=== PATIENT | male | born 1940 | race Caucasian/White ===

== ENCOUNTER 2018-11-08 07:00 | Observation (INO) | payer OTHER ==
[~2018-11-08] VITALS: Ht 172.7 cm; Wt 104.3 kg
[~2018-11-08 07:00] MED LIST: ASPIRIN325 MG PO; ATENOLOL25 MG PO; CO Q-10100 MG PO; GARLIC100 MG PO; LEVOTHYROXINE75 MCG PO; NIACIN500 M1 PO; SILDENAFIL20 MG PO; TAMSULOSIN HCL0.4 MG PO; VITAMIN C500 M2 PO; VITAMIN D31000 UNI1 PO
--- NOTE | 2018-11-08 12:58 | NUR ---
11/08/18 1258 Eliz Correia 1244 PT ARRIVED IN PACU WITH ORAL AIRWAY. NON-RESPONSIVE TO VERBAL/TACTILE STIMULI.
--- NOTE | 2018-11-08 14:53 | NUR ---
TITRATING CBI DOWN URINE IN CLEAR STRAW COLOR. 500 IRRIGATION IN 850 URINE OUT EQUALS 350ML URINE OUT.
[2018-11-08] MEDS ORDERED: SIMVASTATIN20 MG PO (15:35)
--- NOTE | 2018-11-08 16:03 | NUR ---
Medications reconciled with patient's medication bottles and patient interview
--- NOTE | 2018-11-08 16:34 | NUR ---
PT URINE IN TUBE IS LIGHT CRANBERRY AT THIS TIME. WILL CONTINUE WITH CBI. PT REPORTS PAIN IS WELL MANAGED AT THIS TIME.
--- NOTE | 2018-11-08 16:34 | NUR ---
PT RESTING QUIETLY IN BED REPORTS PAIN IS WELL CONTROLLED DENIES NEED FOR MORE PAIN MEDICATIONS AT THIS TIME. URINE IS LIGHT PINK NEARLY CLEAR AT THIS TIME IN THE TUBE OF SIMEON.
--- NOTE | 2018-11-08 17:35 | NUR ---
PT TO THE UNIT POST OP TURP/CBI, PT TOLERATING REGULAR DIET, NO NAUSEA, PERCOCET GIVEN ONCE FOR PAIN 01/17. SECURMENT DEVICE FOR SIMEON PLACED ON ARRIVAL. NO BLOOD NOTED AT MEATUS. TITRATING CBI TO MAINTAIN LIGHT PINK URINE IN SIMEON TUBE.
--- NOTE | 2018-11-08 18:11 | NUR ---
PATIENT SITTING UP IN BED, BEDSIDE. CALL LIGHT IN REACH. NO FURTHER NEEDS AT THIS TIME.
--- NOTE | 2018-11-08 19:27 | NUR ---
SHIFT REPORT RECEIVED FROM DEREK MORRIS AT BEDSIDE. PT AWAKE AND IN BED, IN ROOM. PT VERBALIZED CURIOSITY REGARDING PRN STOOL SOFTNER FOR BOWEL EASE. PT DENIES FURTHER NEEDS, CALL LIGHT IN REACH. CBI INFUSING, LIGHT PINK NOTED IN CATHETER TUBING, WILL MONITOR. PT DENIES PAIN.
--- NOTE | 2018-11-08 21:00 | NUR ---
ASSESSMENT COMPLETE. IV FLUIDS INFUSING PER MD ORDERS, IV SITE WNL, BLOOD RETURN NOTED. CBI INFUSING, LIGHT TO MEDIUM PINK TINGED URINE NOTED IN CATHETER TUBING. PT DENIES PAIN OR BLADDER SPASMS. PRN CONSTIPATION MEDICATION GIVEN PER PT REQUEST. NO ADDITIONAL NEEDS, CALL LIGHT IN REACH.
--- NOTE | 2018-11-08 21:00 | NUR ---
CBI INFUSING, 1000 MLS LIGHT TO MEDIUM PINK URINE NOTED FOR OUTPUT. PT DENIES PAIN AND OTHER NEEDS, CALL LIGHT IN REACH.
--- NOTE | 2018-11-08 22:01 | NUR ---
V/S DONE AND CHARTED. ICE WATER REFILLED.
--- NOTE | 2018-11-08 22:30 | NUR ---
CBI INFUSING, 775 LIGHT TO MEDIUM PINK URINE NOTED AND EMPTIED FROM CATHETER. PT DENIES BLADDER SPASMS AND PAIN. NO NEEDS, PT IN GOOD SPIRITS. CALL LIGHT IN REACH.
--- NOTE | 2018-11-08 23:30 | NUR ---
CBI INFUSING, PT DENIES BLADDER SPASMS OR PAIN. 325 MLS OF LIGHT TO MEDIUM PINK TINGED URINE NOTED. NO CLOTS. PT DENIES NEEDS, CALL LIGHT IN REACH.
--- NOTE | 2018-11-09 00:17 | NUR ---
new bag of iv fluids infusing per md orders, site wnl. no further needs, call light in reach.
--- NOTE | 2018-11-09 02:30 | NUR ---
ASSESSMENT COMPLETE. VSS. PT DENIES PAIN AND BLADDER SPASMS AT THIS TIME. CBI INFUSING, RATE OF CBI INFUSION DECREASED CATHETER TUBING IS CLEAR TO LINK PINK IN COLOR. NO FURTHER NEEDS, [facility] TECHNICAL ARCHITECT SINTA IN ROOM TO EMPTY SIMEON BAG. CALL LIGHT IN REACH.
--- NOTE | 2018-11-09 03:00 | NUR ---
CBI CLAMPED AT THIS TIME. CATHETER OUTPUT IS CLEAR WITH HUES OF LIGHT PINK. RECENT 725 MLS OUTPUT. PT DENIES FURTHER NEEDS, CALL LIGHT IN REACH.
--- NOTE | 2018-11-09 03:57 | NUR ---
CBI UNCLAMPED AND IS INFUSING. CATHTER OUTPUT IS CRANBERRY IN COLOR, NO CLOTS NOTED. PT DENIES PAIN. NO FURTHER NEEDS, CALL LIGHT IN REACH.
--- NOTE | 2018-11-09 06:21 | NUR ---
500 MLS LIGHT TO MEDIUM PINK UO COLLECTED. CBI REMAINS IN PLACE. IV FLUIDS ALSO INFUSING PER MD ORDERS, SITE WNL. PT DENIES PAIN, CALL LIGHT IN REACH. I&O'S AND VS COLLECTED.
--- NOTE | 2018-11-09 07:58 | NUR ---
CATHETER TUBING IS CLEAR, CBI CLAMPED. DAYSHIFT RN AWARE. 352 OUTPUT RECORDED. PT DENIES NEEDS, CALL LIGHT IN REACH. PT DENIES FURTHER NEEDS.
--- NOTE | 2018-11-09 08:58 | NUR ---
PT COMPLAING OF CHEST PAIN AT THIS TIME. DR. RUSSO NOTIFIED REGARDING EVENT. NEW ORDERS OBTAINED VIA TORB FOR STAT EKG, LABS FOR TROPONIN, CALCIUM, MAG, PHOS. VS AT THIS TIME ARE BP 179/77, P103, MEAN PRESSURE 102. PT REQUESTING EKG. PT JUST ATE A LARGE MEAL, SITTING IN BED AT THIS TIME. TURP IS UNCLAMPED AT THIS TIME, TUBING COLOR IS CLEAR AT THIS TIME.
--- NOTE | 2018-11-09 09:00 | NUR ---
DR. RUSSO IN TO CONSULT WITH PT. NEW ORDER RECEIVED FOR PEPCID 1MG IVP. PT REPORTS CHEST PAIN WENT AWAY. BP 156/66, P98, MEAN 86. SAT LEVEL 97%. PT DENIES SOB. CONT IRRIGATION RUNNING, CLEAR COLORED OUTPUT NOTED IN TUBING, TITRATED DOWN BY DR. RUSSO AT THIS TIME. PT STATES HE FEELS BETTER AT THIS TIME. REMAINS AT BEDSIDE. CALL LIGHT WTIHIN REACH. PT REPORTS HE FEELS "ANXIOUS TO GO HOME".
--- NOTE | 2018-11-09 09:31 | NUR ---
PROVIDER AWARE OF CHEST PAIN REPORT FROM THIS AM. RESOLVED.
--- NOTE | 2018-11-09 09:38 | NUR ---
PATIENT IN BED WATCHING TV, IN ROOM. CALL LIGHT IN REACH. NO FURTHER NEEDS AT THIS TIME.
[2018-11-09] MEDS ORDERED: PERCOCET 5-3251 EACH PO (11:04)
[2018-11-09] MEDS ORDERED: LEVAQUIN500 MG PO (11:07)
--- NOTE | 2018-11-09 15:31 | EKG ---
[facility] [address] [facility] [place] [address] Signed Normal sinus rhythm Left axis deviation Possible Inferior infarct , age undetermined Abnormal ECG When compared with ECG of 28-OCT-2018 08:53, Borderline criteria for Inferior infarct are now present T wave inversion now evident in Inferior leads Confirmed by NOAH FRIAS DO ([id number]) on 11/09/2018 3:31:11 PM Electronically Signed By: NOAH FRIAS DO 11/09/18 1531 PATIENT NAME: CHERELLE WADSWORTH Electrocardiogram DATE OF : 40 PHYSICIAN: NOAH FRIAS DO REPORT #: [id number] REPORT IS CONFIDENTIAL AND NOT TO BE RELEASED WITHOUT AUTHORIZATION
--- NOTE | 2018-11-12 12:35 | OR ---
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 PROCEDURES PERFORMED: 1. Urethral dilation using [place] sounds, 14-Kenyan to 28-Kenyan. 2. Transurethral resection of the prostate. ANESTHESIA: General. ESTIMATED BLOOD LOSS: 30 mL. COMPLICATIONS: None. SPECIMENS: Prostate chips sent to pathology for evaluation. DRAINS: A 22-Kenyan 3-way Renteria catheter, connected to continuous bladder irrigation. INDICATIONS FOR PROCEDURE: Mr. Thomas is a very pleasant 78-year-old gentleman who recently presented to me with complaints of progressively worsening weakening in his force of stream along with nocturia and mild urgency symptoms. He underwent diagnostic cystoscopy, which revealed severe trilobar BPH with a very prominent median lobe. It was approximately 3 cm from verumontanum to bladder neck. After a long discussion of the risks and benefits of the procedure, the patient elected to undergo transurethral resection of the prostate for definitive management of his BPH symptoms. OPERATIVE FINDINGS: 1. The patient's urethra was dilated from 14-Kenyan to 28-Kenyan using Brownton sounds Electronically Signed By: ALYSSA RUSSO MD 11/12/18 1235 PATIENT NAME: CHERELLE THOMAS OPERATIVE REPORT DATE OF : 40 REPORT #: [id number] PHYSICIAN: ALYSSA RUSSO MD PCP: NO PRIMARY CARE PHYSICIAN REPORT IS CONFIDENTIAL AND NOT TO BE RELEASED WITHOUT AUTHORIZATION [facility] [address] [place], [place] [address] Signed without difficulty. 2. Cystoscopy revealed no evidence of any suspicious masses, lesions, or stones. Bilateral ureteral orifices were not in the vicinity of the bladder neck or of the median lobe. Therefore, the median lobe was easily resected using the bipolar loop without damage to the bilateral ureteral orifices. 3. The patient's prostate was resected using a 24-Kenyan bipolar loop in a stepwise fashion, beginning at the median lobe and then the left lateral lobe followed by the right lateral lobe of the prostate. The prostate was dissected down to the level of the verumontanum. Overall, the resection was performed without any complication. 4. A 22-Kenyan three way Renteria catheter was inserted into the patient's bladder and connected to continuous bladder irrigation at the end of procedure. 5. Digital rectal examination was performed today, which revealed a 55 g prostate with hypertrophy noted in both lobes with a deep medial median furrow. The gland is mostly soft and smooth with no evidence of focal nodularity. DESCRIPTION OF PROCEDURE: After informed consent was obtained, the patient was taken back to the operating room. He was transferred from the [facility] to the operating room table, where general anesthesia was induced. He was placed in dorsal lithotomy position and his genitalia were prepped and draped in a standard sterile fashion. Using a 30-degree lens on a 26-Kenyan introducer, the sheath was inserted into the patient's bladder with the help of the visual obturator. Prior to this, the patient's urethra was dilated using Snow sounds from 14-Kenyan to 28-Kenyan without difficulty. Once inside the bladder, I removed the visual obturator and inserted the resectoscope and performed a thorough inspection of the patient's bladder and bilateral ureteral orifices. I then inspected the prostatic urethra. I then began my resection of the median lobe of the prostate, which was not in the vicinity of the bilateral ureteral orifices. Once this lobe was resected, I then resected the left lateral lobe followed by the right lateral lobe of the prostate. Once the majority of the adenoma was successfully removed, I switched over to the bipolar button where I then was able to achieve adequate hemostasis via cauterization of the resection bed. The entire prostatic urethra was then cauterized after resection of the adenoma, in particular the anterior wall of the urethra as well as the junction between the lateral lobes and the area of the verumontanum. Once I was satisfied that hemostasis had been achieved, I removed the resectoscope and placed a Ana María onto the sheath and irrigated all the prostate chips out of the patient's bladder and placed them in a specimen cup to be sent to pathology for evaluation. Once all the prostate chips were successfully evacuated, a Sensor wire was inserted through the 26-Kenyan sheath and into the patient's bladder. The sheath was then removed leaving the wire behind. Over the wire, I passed a 22-Kenyan 3-way Renteria catheter into the patient's bladder. The Sensor wire was then removed. The catheter balloon was filled with 30 mL of sterile water. The catheter was then irrigated manually, which produced clear pink irrigation fluid. The catheter was then connected to the continuous bladder Electronically Signed By: ALYSSA RUSSO MD 11/12/18 1235 PATIENT NAME: CHERELLE THOMAS OPERATIVE REPORT DATE OF : 40 REPORT #: [id number] PHYSICIAN: ALYSSA RUSSO MD PCP: NO PRIMARY CARE PHYSICIAN REPORT IS CONFIDENTIAL AND NOT TO BE RELEASED WITHOUT AUTHORIZATION [address] [place] [address] Signed irrigation and the procedure was terminated. The patient tolerated the procedure well without any complication. He will now be transferred to the postanesthesia care unit in stable condition. DISPOSITION: Once the patient awakes from anesthesia, he will be transferred to the med/surg floor, where his diet will be restarted and he will be given pain control as needed. His CBI will be weaned off slowly to keep his urine clear to light pink in color. I anticipate that he will remain in the hospital overnight and tomorrow will be discharged to home with his Renteria catheter to gravity drainage once he undergoes another dose of IV antibiotics. MD FERDINAND Siegel/DEBORAH /[id number] Copies: ~ Electronically Signed By: ALYSSA RUSSO MD 11/12/18 1235 PATIENT NAME: CHERELLE THOMAS OPERATIVE REPORT DATE OF : 40 REPORT #: [id number] PHYSICIAN: ALYSSA RUSSO MD PCP: NO PRIMARY CARE PHYSICIAN REPORT IS CONFIDENTIAL AND NOT TO BE RELEASED WITHOUT AUTHORIZATION
== END 2018-11-09 12:25 | disposition home or self-care (01) ==
LOC: DS 07:00 → MS 12:55 → DS 13:30 → MS 13:30 → DS 11-09 12:25
PROVIDERS: ADMIT Urology
PROC: 0VT08ZZ Resection of Prostate, Via Natural or Artificial Opening Endoscopic (ICD-10-PCS; principal; 2018-11-08 09:45)
DX: N40.1 Benign prostatic hyperplasia with lower urinary tract symptoms (principal); R35.0 Frequency of micturition; R35.1 Nocturia; R39.15 Urgency of urination; R39.12 Poor urinary stream; I25.10 Atherosclerotic heart disease of native coronary artery without angina pectoris; I10 Essential (primary) hypertension; E78.5 Hyperlipidemia, unspecified; N52.9 Male erectile dysfunction, unspecified; E03.9 Hypothyroidism, unspecified; N41.1 Chronic prostatitis; I67.9 Cerebrovascular disease, unspecified; E66.9 Obesity, unspecified; Z95.5 Presence of coronary angioplasty implant and graft; Z68.34 Body mass index [BMI] 34.0-34.9, adult; Z79.82 Long term (current) use of aspirin; Z79.899 Other long term (current) drug therapy
CPT/HCPCS: 00914; 36415; 85025; 88305; 93005; 93010; C1769; G0378; J1100; J1885; J1956; J2250; J2405; J2704; J2765; J3010; J7030; J7120

== ENCOUNTER 2025-03-01 13:55 | Emergency (ER) | payer OTHER, MEDICARE ==
[~2025-03-01] VITALS: Ht 172.7 cm; Wt 110.0 kg
[~2025-03-01 13:55] MED LIST changes: +FINASTERIDE5 MG; +FLOMAX0.4 MG; +LEVAQUIN500 MG PO; +NITROGLYCERIN0.4 MG SL; +PERCOCET 5-3251 EACH PO; +SIMVASTATIN20 MG PO
[2025-03-01] MEDS ORDERED: ZETIA10 MG PO (15:47)
[2025-03-01] MEDS ORDERED: MORPHINE SULFATE 4 MG/ML VIAL IV ONE (16:45)
[2025-03-01 17:41] LABS: BASOPHILS 0.6 % (0.2-1.2); EOSINOPHILS 2.0 % (0.8-7.0); LYMPHOCYTES 17.9 % (21.8-53.1); MCH 30.9 PG (25.7-32.2); MCHC 33.3 g/dL (32.3-36.5); MCV 92.7 fL (79.0-92.2); MONOCYTES 10.1 % (5.3-12.2); NEUTROPHILS 68.4 % (34.0-67.9); RBC 4.92 M/uL (4.63-6.08)
[2025-03-01 17:56] LABS: ALT (SGPT) 24.0 U/L (14-59); AST (SGOT) 23.0 U/L (15-37); GLOMERULAR FILTRATION RATE,EST 78.0 mL/min (>60); PROTEIN, TOTAL 7.5 g/dL (6.4-8.2); UREA NITROGEN 21.0 mg/dL (7-18)
[2025-03-01 18:38] VITALS: BP 142/74
[2025-03-01] MEDS ORDERED: HYDROCODON-ACE1 EAC8 PO (18:43)
[2025-03-01] MEDS ORDERED: HYDROCODONE BIT/ACETAMINOPHEN 5/325 MG 1 TAB HOME.PACK PO ONE (19:00)
== END 2025-03-01 19:22 | disposition home or self-care (01) ==
LOC: ED 13:55
PROVIDERS: Emergency Medicine
DX: S22.079A Unspecified fracture of T9-T10 vertebra, initial encounter for closed fracture (principal); I10 Essential (primary) hypertension; W18.30XA Fall on same level, unspecified, initial encounter; Z79.899 Other long term (current) drug therapy; Z88.0 Allergy status to penicillin; Z88.2 Allergy status to sulfonamides; Z88.1 Allergy status to other antibiotic agents; Z87.891 Personal history of nicotine dependence
CPT/HCPCS: 36415; 71250; 80053; 85025; 96374; 96375; 99284-25; A9270; J2270; J2405